=== PATIENT | female | born 1990 | race Caucasian/White ===

== ENCOUNTER 2023-11-06 07:57 | Outpatient (CLI) | payer BC, SELFPAY ==
--- NOTE | ~2023-11-06 | US_ITS ---
EXAMINATION: US right upper quadrant DATE: 11/06/2023 08:51 INDICATION: Abdominal pain. TECHNIQUE: Multiple grayscale and Doppler ultrasound images of the abdomen were obtained. COMPARISON: None FINDINGS: The visualized portions of the head and body of the pancreas are normal. The liver is jaquan l without focal lesion. There is normal flow in main portal vein. The gallbladder is normal in size a nd contains sludge. No gallstones or gallbladder wall thickening. There is no sonographic Rolon sign . The common duct is normal and measures 4 mm. IMPRESSION: 1. No etiology for the patient's symptoms. Reviewed, dictated and finalized at location A.
== END 2023-11-06 07:58 | disposition home or self-care (01) ==
LOC: ANHIMG 08:00
PROVIDERS: Visit Provider Obstetrics & Gynecology
DX: R52 Pain, unspecified (principal)
CPT/HCPCS: 76705

== ENCOUNTER 2024-02-14 00:42 | Inpatient (IN) | payer BC, SELFPAY ==
[2024-02-14] VITALS (25 sets, daily range): BP systolic 69–127; BP diastolic 21–90; PULSE 62–130; RESP 16–20; TEMP 36.6–37.6; O2SAT 97–100; BMI 31.7
[2024-02-14] MEDS: OXYTOCIN 30 UNITS/NS 500 ML 30 UNITS/500 ML BAG 999 UNITS IV CONT (01:14)
--- NOTE | 2024-02-14 01:23 | WPDOBADMIT ---
Obstetrics - Admit Note Admission Note: record reviewed. No pertinent additions to the history and/or any subsequent changes in the physical findings that are not consistent with the expected course of the were found. Additions to the history and/or subsequent changes in the physical findings follow. arrived in labor
--- NOTE | 2024-02-14 01:23 | LDADM ---
This patient, Brooklyn Schulz, was admitted to Labor/Delivery/Recovery 105 on 02/14/24 at 00:42. Plans for labor, pain management and were discussed with patient. Patient/family oriented to hospital policies and general routines including ID bracelet, bed and alarms, visiting hours, pain management, procedures, bathroom and other care routines, personal items, smoking policy, room service/diet and guest tray routines, security routines, and visiting hours. Patient/Family are encouraged to report perceived risks to care and to ask questions if they do not understand what they are told or what they should do. See OBIX for further documentation.
--- NOTE | 2024-02-14 01:24 | PM.OBPRVD ---
OB - Vaginal Delivery Note Procedure Delivery date: 02/14/24 Events: Other (prothombin gene mutation) Induction method: None Delivery augmentation: Rupture of Membranes Delivery monitor: External FHT and External Uterine Route of delivery: Episiotomy description: None Laceration Description: Superficial Specimen: No Quantitative Blood Loss (ml): 125 Anesthesia type: Epidural Disposition: Floor Complications: No immediate complications Baby Date of : 02/14/24 Time of : 01:12 Weeks of gestation at delivery: 39 gender: Male presentation: vertex position: Left Occiput Anterior Placenta delivery description: Spontaneous Cord Vessel Description: 3 Vessels, Clamped/Cut and Delayed Cord Clamping score one minute: 7 score five minutes: 9 Narrative: mother and baby in stable condition
[2024-02-14 01:29] LABS: Basophils Percent Auto 0.2 % (0.2-1.2); Eosinophils Absolute Auto 0.1 K/mm3 (0-0.3); Hemoglobin 10.7 g/dL (12.0-15.0); Immature Granulocyte Absolute 0.19 K/mm3 (0.00-0.031); Immature Granulocyte Percent A 1.8 % (0-0.5); Lymphocytes Absolute Auto 3.02 K/mm3 (0.9-3.2); Mean Corpuscular HGB Conc 33.4 g/dl (32-36); Mean Corpuscular Hemoglobin 30.1 pg (26-34); Mean Corpuscular Volume 90.1 fl (80-100); Mean Platelet Volume 11.8 fl (7.4-10.4); Monocytes Absolute Auto 0.8 K/mm3 (0.1-0.6); Neutrophils Absolute Auto 6.7 K/mm3 (1.3-6.7); Platelet Count Result 143 k/mm3 (150-375); Red Blood Count 3.55 M/mm3 (4.2-5.4); Red Cell Distribution Width 12.8 % (11.5-14.5); White Blood Count 10.8 K/mm3 (4.5-10.0)
[2024-02-14] MEDS: OXYTOCIN 30 UNITS/NS 500 ML 30 UNITS/500 ML BAG 125 UNITS IV CONT (01:52)
[2024-02-14] MEDS: ACETAMINOPHEN 500 MG TABLET 1000 MG (01:53)
[2024-02-14 02:19] LABS: HIV 1/2 Ab P24 Ag Result Negative (Negative)
[2024-02-14] MEDS: WITCH HAZEL 40 PADS 1 PAD TOPICAL (04:45)
[2024-02-14] MEDS: BENZOCAINE 20% AER SPR (*SP) 56 GM CAN 1 SPRAY TOPICAL (04:45)
[2024-02-14] MEDS: MULTIVIT/MIN/PREN/FOL AC/IRON TABLET 1 TAB PO (09:57)
[2024-02-14] MEDS: DOCUSATE SODIUM 100 MG CAPSULE PO ×2 (09:57→16:25)
[2024-02-14] MEDS: ENOXAPARIN 40 MG/0.4 ML SYRINGE SUB-Q (09:58)
--- NOTE | 2024-02-14 16:38 | PC.NURSE ---
Had discussion with mother regarding use of nipple shield. Mother states that the nipple shield she used today was a size 24 and she requested a smaller one. Mother stated that she was sore after the 10 feeding baby had with shield. RN explained that we only have one size but recommended she not use this to not cause any injury to the nipple. Mother stated she has used a 21 shield in the past and also uses that size flange for her pump.
[2024-02-14] MEDS: ACETAMINOPHEN 325 MG TABLET 650 MG PO (17:53)
[2024-02-15] MEDS: ACETAMINOPHEN 325 MG TABLET 650 MG PO (01:30)
[2024-02-15 04:45] LABS: Hematocrit 32.4 % (37.0-47.0); Hemoglobin 10.5 g/dL (12.0-15.0)
[2024-02-15 07:50] VITALS: BP 108/61; PULSE 71; RESP 18; TEMP 36.6; O2SAT 100
[2024-02-15] MEDS: MULTIVIT/MIN/PREN/FOL AC/IRON TABLET 1 TAB PO (08:17)
[2024-02-15] MEDS: ENOXAPARIN 40 MG/0.4 ML SYRINGE SUB-Q (08:17)
[2024-02-15] MEDS: DOCUSATE SODIUM 100 MG CAPSULE PO (08:17)
--- NOTE | 2024-02-15 09:16 | PM.OBPNVD ---
OB - PN: Subj Subjective Date/time seen: 02/15/24 09:16 Interval history: day 1 doing well plan d/c home OB - PN: Obj Data Labs 02/15/24 03:02 Labs: Laboratory Results - last 24 hr 02/15/24 03:02 Hgb 10.5 L Hct 32.4 L OB - PN A/P Plan day: 1 Plan: routine care and discharge home Time Spent With Patient Time: Total time spent is greater than 50% in coordination of care (as documented) at patient's floor/unit and/or counseling patient: Review of Systems Review of Systems: All systems reviewed & are unremarkable except as noted in HPI and below Exam Const: General: cooperative and healthy appearing Chest: Chest palpation & inspection: normal inspection of the chest Resp: Effort & Inspection: normal respiratory effort Cardio: Rate: regular rate Rhythm: regular rhythm
[2024-02-15 11:25] LABS: Rapid Plasma Reagin Non-Reactive (NonReactive)
--- NOTE | 2024-02-15 19:09 | PC.NURSE ---
1200 Patient viewed the discharge video Mother & Baby Care, The First Two Weeks . Patient was given the opportunity and encouraged to ask questions. Patient verbalized understanding of information shared and has been given the mother/baby guide for home reference.
[2024-02-16 10:26] VITALS: BP 105/68; PULSE 79; RESP 18; TEMP 36.6; O2SAT 100
--- NOTE | 2024-02-16 16:29 | PM.OBDSVD ---
DS: Admitting Diagnosis Discharge Date 02/15/24 Admitting Diagnosis labor OB - DS: Summary OB Procedures : None OB Procedures Intrapartum: Spontaneous Vag Delivery OB Procedures: : None Peripartum Data Laceration Description: Superficial Episiotomy description: None Time Spent with Patient Time attestation: Total time spent providing and/or coordinating discharge services: Discharge Plan Discharge Attending physician on discharge: Andrew Deras Consulting providers: Allison Arora Discharging Clinician: Allison Arora Patient Disposition: Home, Self-Care Activity: pelvic rest Diet: regular Discharge Instructions: Education: Mom and Baby Guide Given to: Mother Follow-Up: Call your delivering provider's office for an appointment to be seen in: 6 Weeks Mom and baby should come to [facility] for the follow-up appointment. Appointment Date/Time: Friday, February 16, 2024 at 10:00 am What to expect at your follow-up visit: Physical Assessment Call [phone] if you are unable to keep your appointment time. BREAST CARE: * Wear a snug supportive bra. * For engorgement discomfort: Breast Feeding: * Apply warm moist washcloths * Express milk as needed to relieve engorgement * Wear loose clothing Bottle Feeding: * May apply ice packs * For sore nipples: * Identify correct latch-on * Apply warm moist washcloths before and after nursing * Air dry nipples after nursing * May apply Lansinoh cream to nipples PERINEAL CARE: * Until bleeding stops, use your bhaskar bottle after urinating * Change your pad frequently throughout the day * You may take sitz baths several times a day (fill your bathtub with warm water and soak for 20 minutes.) Do NOT bathe in the water * No tub baths until seen by your physician - You may shower ACTIVITY: * Rest as much as possible. * Do not exercise or lift anything heavier than your baby (such as laundry or other children.) * Avoid stairs or driving as much as possible. * Do not put anything into the vagina. No douching, tampons, or sexual activity until seen by physician. NOTIFY PHYSICIAN IF YOU HAVE ANY QUESTIONS OR IF ANY OF THE FOLLOWING SYMPTOMS OCCUR: * If your episiotomy or incision becomes red, swollen, or more painful than what you have experienced in the hospital. * If your vaginal bleeding becomes foul smelling. * If your vaginal bleeding becomes more heavy than a period or if your bleeding changes from pink to bright red. However, you may pass an occasional walnut-sized clot once or twice for the first week . * If you experience a sharp, shooting pain in you calves. * If you discover a hard, reddened area on your breast or if you experience flu-like symptoms. DIET: * Eat regular, well-balanced meals. * Drink plenty of fluids daily. If , drink to thirst. Follow-up/Referrals: Allison Arora CNM [Certified Nurse [employer]] - 4 Weeks Discharge Medications: Continued diphenhydramine HCl 25 mg capsule 25 mg PO QHS PRN (Reason: Allergy Symptoms) enoxaparin 40 mg/0.4 mL syringe 40 mg subcut DAILY omeprazole 40 mg capsule,delayed release(DR/EC) 40 mg PO BID PNV #[id number] 30 mg iron-10 mg iron-1 mg capsule 1 cap PO Date of admission: 02/14/24 00:42 Primary Care Provider: PHYSICIAN,DEPUTY BAILIFF Admitting Provider: Andrew Deras Attending physician on admission: Andrew Deras Condition: Stable
== END 2024-02-15 15:32 | disposition home or self-care (01) | DRG 806 ==
LOC: ANHLDR 01:10 → ANHOB2 05:44
PROVIDERS: Advanced Practice Midwife; Admitting Provider Obstetrics & Gynecology; Visit Provider Obstetrics & Gynecology
DX: O62.3 Precipitate labor (principal); D68.52 Prothrombin gene mutation; Z37.0 Single live birth; O99.12 Other diseases of the blood and blood-forming organs and certain disorders involving the immune mechanism complicating childbirth; Z3A.39 39 weeks gestation of pregnancy; O69.81X0 Labor and delivery complicated by cord around neck, without compression, not applicable or unspecified
CPT/HCPCS: 36415; 85014; 85018; 85025; 86592; 86703; 86850; 86900; 86901; A9270; G0432; J1650; J2590